=== PATIENT | female | born 1965 ===

== ENCOUNTER 2017-12-26 10:11 | Emergency (ER) | payer OTHER ==
[2017-12-26 10:28] VITALS: RESP 18; O2SAT 99; BMI 30.2
--- NOTE | 2017-12-26 10:36 | ED PDOC ---
Arrival/HPI - History of Present Illness Narrative History of Present Illness (Text): This is a 52 year old georgian speaking female with PMH of HTN, noninsulin dependent DM2 who presents with worsening left knee pain for the past 3 days. Pt states that she has had left knee pain and right knee pain for the past 15 days, but states that the right knee pain went away. Pt states that the left knee pain is worse with walking, and flexion/extension; relieved by rest. Denies fever, chills, chest pain, sob, trauma, swelling or redness, recent travel including any long rides or plane trips. PMD: none PMH: HTN, noninsulin dependent DM2 (diagnosed 3 years ago) PSH: total hysterectomy in 2013 due to fibroids Meds: Enalapril 20 mg PO daily, Metformin 1000 mg PO BID, Motrin as needed for pain Allx: diclofenac (anaphylaxis) <Tony Suarez - Last Filed: 12/26/17 13:41> - General Historian: Patient - History of Present Illness Time/Duration: > week (Patient notes worsening left knee pain for the past 3 days) Symptom Onset: Gradual Symptom Course: Unchanged Quality: Aching <Rivas Herrera - Last Filed: 12/26/17 15:14> - General Chief Complaint: Lower Extremity Problem/Injury Time Seen by Provider: 12/26/17 10:34 Past Medical History - Provider Review Nursing Documentation Reviewed: Yes <Rivas Herrera - Last Filed: 12/26/17 15:14> Family/Social History - Physician Review Nursing Documentation Reviewed: Yes Family/Social History: No Known Family HX <Rivas Herrera - Last Filed: 12/26/17 15:14> Allergies/Home Meds <Tony Suarez - Last Filed: 12/26/17 13:41> <Rivas Herrera - Last Filed: 12/26/17 15:14> Allergies/Adverse Reactions: Allergies diclofenac Allergy (Verified 12/26/17 11:01) ANAPHYLAXIS fluconazole [From Diflucan] Allergy (Verified 12/26/17 10:38) ANAPHYLAXIS Review of Systems - Physician Review All systems were reviewed & negative as marked: Yes - Review of Systems Constitutional: Normal. absent: Fevers, Night Sweats Respiratory: Normal. absent: SOB Cardiovascular: Normal. absent: Chest Pain Musculoskeletal: Other (Patient notes left knee pain for the past 3 days). absent: Normal <Rivas Herrera - Last Filed: 12/26/17 15:14> Physical Exam Vital Signs Temp Pulse Resp BP Pulse Ox 12/26/17 10:27 98.9 F 86 18 165/96 H 99 - Systems Exam Head: Present: Atraumatic, Normocephalic Extroacular Muscles: Present: EOMI Respiratory/Chest: Present: Clear to Auscultation. No: Rales, Retracting, Rhonchi Cardiovascular: Present: Regular Rate and Rhythm, Normal S1, S2 Abdomen: Present: Normal Bowel Sounds. No: Tenderness, Distention Upper Extremity: Present: Normal Inspection, NORMAL PULSES, Capillary Refill < 2s Lower Extremity: Present: NORMAL PULSES, Tenderness (bilateral left knee tende rness, no swelling, no erythema; pain on extension and flexion (-) lachmans). No: Edema, Deformity Skin: Present: Warm, Dry Psychiatric: Present: Alert <Tony Suarez - Last Filed: 12/26/17 13:41> Vital Signs Reviewed: Yes Vital Signs Temp Pulse Resp BP Pulse Ox 12/26/17 12:06 79 18 158/86 H 99 12/26/17 10:27 98.9 F 86 18 165/96 H 99 Temperature: Afebrile Blood Pressure: Hypertensive (at 165/96) Pulse: Regular Respiratory Rate: Normal Appearance: Positive for: Well-Appearing, Non-Toxic Pain Distress: Mild Mental Status: Positive for: Alert and Oriented X 3 <Rivas Herrera - Last Filed: 12/26/17 15:14> Medical Decision Making ED Course and Treatment: Complaining of left knee pain. Treated with Tyenol. Left knee x-ray ordered, and showed mild DJD, no fracture or dislocation. 12/26/17 13:40 <Tony Suarez - Last Filed: 12/26/17 13:41> ED Course and Treatment: 12/26/17 11:20 Impression: 52 year old female presents to the emergency department for wo rsening left knee pain for the past 3 days. Patient Seen with Resident: In agreement with resident note which contains more details about the patient. Patient seen and evaluated with resident. Came up with plan and treatment together. Differential Diagnosis included but are not limited to: Plan: -- Tylenol 325mg -- X-ray of left knee, 2 views (AP&LAT) -- Reassess and disposition Progress Notes: 12/26/17 15:13 pt seen with resident c/o of left knee pain. normal rom. no erytehm a nofever. xr with osteoarthritis. pain improved. advise outpt fu. - RAD Interpretation Narrative RAD Interpretations (Text): X-ray of left knee reviewed by radiologist, shows: Dictator : Rudy Moon MD Report Date : 12/26/2017 13:21:06 FINDINGS: BONES: Normal. No fracture. JOINTS: Minor posterior patella osteophyte formation. JOINT EFFUSION: Evaluation for joint effusion is somewhat limited to over flexion of the knee in the lateral projection. OTHER FINDINGS: None. IMPRESSION: No evidence of acute displaced fracture nor dislocation. Minor degenerative ost eoarthritis. Radiology Orders: 12/26/17 10:45 KNEE LEFT 2 VIEWS (AP & LAT) [RAD] Stat Family Preservation Caseworker: Radiologist - Medication Orders Current Medication Orders: Discontinued Medications Acetaminophen (Tylenol 325mg Tab) 975 mg PO STAT STA Stop: 12/26/17 11:15 Last Admin: 12/26/17 11:39 Dose: 975 mg MAR Pain/Vitals Document 12/26/17 11:39 [facility] (Rec: 12/26/17 11:39 [facility] [id number]) Pain Reassessment Is This A Pain ReAssessment? No <Rivas Herrera - Last Filed: 12/26/17 15:14> - PA / WEB PRODUCTION ARTIST / Resident Statement / has reviewed & agrees with the documentation as recorded. / has examined the patient and agrees with the treatment plan. - Scribe Statement The provider has reviewed the documentation as recorded by the Scribe [place] All medical record entries made by the Karenibbrad were at my direction and personally dictated by me. I have reviewed the chart and agree that the record accurately reflects my personal performance of the history, physical exam, medical decision making, and the department course for this patient. I have also personally directed, reviewed, and agree with the discharge instructions and d isposition. <Rivas Herrera - Last Filed: 12/26/17 15:14> Disposition/Present on Arrival - Present on Arrival Any Indicators Present on Arrival: No - Disposition Have Diagnosis and Disposition been Completed?: Yes Disposition Time: 13:41 <Tony Suarez - Last Filed: 12/26/17 13:41> - Present on Arrival Any Indicators Present on Arrival: No - Disposition Have Diagnosis and Disposition been Completed?: Yes <Rivas Herrera - Last Filed: 12/26/17 15:14> - Disposition Diagnosis: Knee pain Disposition: HOME/ ROUTINE Condition: STABLE Discharge Instructions (ExitCare): Knee Pain (DC) Print Language: GUAMANIAN Additional Instructions: return to er with worsening symptosm or concerns. follow up with specialist. Referrals: Aung Kennedy, [Staff Provider] - Follow up with primary FAMILY PROVIDER,NO [Non-Staff] - Follow up with primary Forms: [employer] (Swedish)
[2017-12-26 13:16] VITALS: BP 131/65; PULSE 88; TEMP 98
--- NOTE | 2017-12-26 13:24 | RAD ---
Date of service: 12/26/2017 PROCEDURE: Left Knee Radiographs. HISTORY: Pain. COMPARISON: None. FINDINGS: BONES: Normal. No fracture. JOINTS: Minor posterior patella osteophyte formation. JOINT EFFUSION: Evaluation for joint effusion is somewhat limited to over flexion of the knee in the lateral projection. OTHER FINDINGS: None. IMPRESSION: No evidence of acute displaced fracture nor dislocation. Minor degenerative osteoarthritis.
== END 2017-12-26 13:05 | disposition home or self-care (01) ==
LOC: ED 10:11
DX: M25.562 Pain in left knee (principal); E11.9 Type 2 diabetes mellitus without complications; I10 Essential (primary) hypertension